=== PATIENT | female | born 1995 | race Caucasian/White ===

== ENCOUNTER 2017-12-17 17:42 | Emergency (ER) | payer OTHER ==
--- NOTE | 2017-12-17 18:55 | RAD ---
HISTORY: Right lower extremity pain COMPARISONS: None relevant TECHNIQUE: Multiple transverse and longitudinal ultrasound images were obtained of the right lower extremity from the level of the common femoral vein inferiorly through to the infrapopliteal veins using grayscale, color Doppler, and spectral Doppler imaging with and without compression and with augmentation. Comparison images were obtained of the contralateral common femoral vein. FINDINGS: VEINS: There is nonocclusive thrombus within the inferior extent of the right femoral vein. There is occlusive thrombus within the gastrocnemius branches of the popliteal vein. The remainder of the venous system of the right lower extremity is compressible throughout its course, with normal flow on color Doppler imaging and normal response to augmentation on spectral Doppler imaging. SOFT TISSUES: Unremarkable. OTHER FINDINGS: None. IMPRESSION: NONOCCLUSIVE THROMBUS OF THE INFERIOR EXTENT OF THE RIGHT FEMORAL VEIN WITH OCCLUSIVE THROMBUS NOTED WITHIN BRANCHES OF THE POPLITEAL VEIN.
[2017-12-17 19:26] LABS: Hematocrit 41 % (35-47); Hemoglobin 13.9 g/dl (12.0-16.0); Mean Corpuscular HGB Conc 34 g/dl (31-36); Mean Corpuscular Hemoglobin 31 pg (27-31); Mean Corpuscular Volume 91 fL (80-97); Mean Platelet Volume 7.5 um3 (7.4-10.4); Platelet Count 253 10^3/ul (150-450); Red Cell Distribution Width 13 % (10.5-15); White Blood Count 6.6 10^3/ul (3.5-10.8)
[2017-12-17 19:46] LABS: EGFR Non-African American 75.2 (>60)
[2017-12-17] MEDS ORDERED: Rivaroxaban TAB(*) 15 MG PO ONE (20:04)
[2017-12-17] MEDS ORDERED: Iohexol 350* (CONTRAST) 500 ML MDV IV ONE (20:45)
[2017-12-17 21:30] VITALS: BP 123/76
--- NOTE | 2017-12-17 21:36 | RAD ---
HISTORY: Chest pain, DVT COMPARISONS: None TECHNIQUE: Multiple contiguous axial CT scans of the chest were obtained without intravenous contrast. Coronal and sagittal multiplanar reformations are also submitted for review. FINDINGS: NECK AND THYROID: The lower neck and thyroid are unremarkable. CHEST WALL: There is no lower cervical, axillary, or supraclavicular lymphadenopathy by size criteria. HEART AND PERICARDIUM: The heart is unremarkable. AORTA AND PULMONARY VASCULATURE: There are filling defects within the segmental branches of the lower lobes bilaterally. The aorta is unremarkable. MEDIASTINUM: There is no mediastinal lymphadenopathy by size criteria. HEVER: There is no hilar lymphadenopathy by size criteria. AIRWAY AND ESOPHAGUS: The airway is unremarkable, without endobronchial filling defect. The esophagus is grossly normal. LUNG PARENCHYMA: The lungs are clear. PLEURA: No pleural abnormalities are noted. UPPER ABDOMEN: The upper abdomen is unremarkable. BONES AND SOFT TISSUES: No bone or soft tissue abnormalities are noted. OTHER: None. IMPRESSION: FILLING DEFECTS WITHIN THE SEGMENTAL LOWER LOBE BRANCHES OF THE PULMONARY ARTERIES BILATERALLY, CONSISTENT WITH PULMONARY EMBOLISM PRELIMINARY FINDINGS WERE DISCUSSED WITH DR. NELSON IN THE EMERGENCY DEPARTMENT AT APPROXIMATELY 9:32 PM ON DECEMBER 17, 2017.
--- NOTE | 2017-12-18 12:35 | ED ---
Progress - Progress Note Progress Note: Received message that patients Xarelto requires a preauthorization. Message left with patient that we do not do Pre-Authorizations for medication. Patient advised to contact primary care provider or [facility] for Pre- Authorizations. She may also return to ed for alternative treatment options.. Course/Dx - Diagnoses Provider Diagnoses: DVT (deep venous thrombosis), Pulmonary embolism Discharge - Sign-Out/Discharge Documenting (check all that apply): Post-Discharge Follow Up - Discharge Plan Condition: Stable Disposition: HOME Prescriptions: Rivaroxaban TAB(*) [Xarelto 15 mg(*)] 15 mg PO BID #42 tab Patient Education Materials: Pulmonary Embolism (DC), Deep Vein Thrombosis (ED) Referrals: [facility] [place] [Primary Care Provider] - 1 Day Additional Instructions: Follow up with [facility] tomorrow. Return to the ER if you experience CP or SOB. RETURN TO THE EMERGENCY DEPARTMENT FOR CHANGING OR WORSENING SYMPTOMS. - Billing Disposition and Condition Condition: STABLE Disposition: HOME
--- NOTE | 2017-12-20 13:26 | ED ---
Shona Lobo Nilda, scribed for West Wilson MD on 12/17/17 at 2137 . Lower Extremity - HPI Summary HPI Summary: This patient is a 22 year old F presenting to [facility] accompanied by friend with a chief complaint of constant pain in right upper calf for the past 3 days. Patient went to [facility] for evaluation in which blood work indicated possible DVT. The patient rates the pain 6/10 in severity. Symptoms aggravated by palpation and alleviated by nothing. Patient reports "weird twinge in left side." Patient denies CP, chest heaviness, palpitations, SOB, dyspnea, cough, and hemoptysis. She denies recent prolonged travel and FHx of DVT and clots. Patient states she's on BCPs. - History of Current Complaint Chief Complaint: EDExtremityLower Stated Complaint: POSSIBLE BLOOD CLOT PER DR Time Seen by Provider: 12/17/17 19:07 Hx Obtained From: Patient Onset of Pain: Days Onset/Duration: Days Severity Currently: Moderate Pain Intensity: 6 Pain Scale Used: 0-10 Numeric Timing: Constant Location: Is Discrete @ - right upper calf Associated Signs And Symptoms: Positive: Other - weird twinge in left side. Patient denies CP, heaviness, on chest, palpations, SOB, dyspnea, cough, and hemoptysis. Aggravating Factor(s): Other - palpation Alleviating Factor(s): Nothing Able to Bear Weight: Yes - Allergies/Home Medications Allergies/Adverse Reactions: Allergies Allergy/AdvReac Type Severity Reaction Status Date / Time Sulfa (Sulfonamide Allergy Hives Verified 12/17/17 17:57 Antibiotics) PMH/Surg Hx/FS Hx/Imm Hx Endocrine/Hematology History: Denies: Hx Diabetes Cardiovascular History: Denies: Hx Hypertension, Hx Pacemaker/ICD Sensory History: Denies: Hx Hearing Aid Psychiatric History: Denies: Hx Panic Disorder Infectious Disease History: No Infectious Disease History: Denies: Traveled Outside the [place] in Last 30 Days - Family History Known Family History: Positive: Hypertension, Diabetes, Other - negative clots - Social History Occupation: Student Alcohol Use: None Substance Use Type: Reports: None Smoking Status (MU): Never Smoked Tobacco Review of Systems Negative: Fever, Chills Negative: Erythema Negative: Sore Throat Positive: Other - negative chest heaviness. Negative: Palpitations, Chest Pain Positive: Other - negative dyspnea and hemoptysis. Negative: Shortness Of Breath, Cough Negative: Abdominal Pain, Vomiting, Nausea Negative: dysuria, hematuria Positive: Other - upper right calf pain, "weird twinge" on left side. Negative : Myalgia, Edema Negative: Rash Neurological: Other - negative dizziness All Other Systems Reviewed And Are Negative: Yes Physical Exam - Summary Physical Exam Summary: Constitutional: Well-developed, Well-nourished, Alert. (-) Distressed Skin: Warm, Dry HENT: Normocephalic; Atraumatic Eyes: Conjunctiva normal Neck: Musculoskeletal ROM normal neck. (-) JVD, (-) Stridor, (-) Tracheal deviation Cardio: Rhythm regular, rate normal, Heart sounds normal; Intact distal pulses; The pedal pulses are 2+ and symmetric. Radial pulses are 2+ and symmetric. (-) Murmur Pulmonary/Chest wall: Effort normal. (-) Respiratory distress, (-) Wheezes, (-) Rales Abd: Soft, (-) Tenderness, (-) Distension, (-) Guarding, (-) Rebound Musculoskeletal: (-) Edema, Posterior right upper calf tenderness. Lymph: (-) Cervical adenopathy Neuro: Alert, Oriented x3 Psych: Mood and affect Normal Triage Information Reviewed: Yes Vital Signs On Initial Exam: Initial Vitals Temp Pulse Resp BP Pulse Ox 96.9 F 87 16 131/79 98 12/17/17 17:53 12/17/17 17:53 12/17/17 17:53 12/17/17 17:53 12/17/17 17:53 Vital Signs Reviewed: Yes Diagnostics - Vital Signs Vital Signs Temp Pulse Resp BP Pulse Ox 12/17/17 17:53 96.9 F 87 16 131/79 98 - Laboratory Lab Results: Lab Results 12/17/17 12/17/17 Range/Units 19:18 19:18 WBC 6.6 (3.5-10.8) 10^3/ul RBC 4.50 (4.0-5.4) 10^6/ul Hgb 13.9 (12.0-16.0) g/dl Hct 41 (35-47) % MCV 91 (80-97) fL MCH 31 (27-31) pg MCHC 34 (31-36) g/dl RDW 13 (10.5-15) % Plt Count 253 (150-450) 10^3/ul MPV 7.5 (7.4-10.4) um3 Sodium 137 (133-145) mmol/L Potassium 3.7 (3.5-5.0) mmol/L Chloride 105 (101-111) mmol/L Carbon Dioxide 25 (22-32) mmol/L Anion Gap 7 (2-11) mmol/L BUN 13 (6-24) mg/dL Creatinine 0.94 (0.51-0.95) mg/dL Est GFR ( Amer) 96.7 (>60) Est GFR (Non-Af Amer) 75.2 (>60) BUN/Creatinine Ratio 13.8 (8-20) Glucose 98 (70-100) mg/dL Calcium 9.5 (8.6-10.3) mg/dL Total Bilirubin 0.30 (0.2-1.0) mg/dL AST 17 (13-39) U/L ALT 13 (7-52) U/L Alkaline Phosphatase 52 (34-104) U/L Total Protein 6.6 (6.4-8.9) g/dL Albumin 4.0 (3.2-5.2) g/dL Globulin 2.6 (2-4) g/dL Albumin/Globulin Ratio 1.5 (1-3) Result Diagrams: 12/17/17 19:18 12/17/17 19:18 Lab Statement: Any lab studies that have been ordered have been reviewed, and results considered in the medical decision making process. - CT CTA chest CT Interpretation Completed By: Radiologist - CTA chest, per radiologist, reveals FILLING DEFECTS WITHIN THE SEGMENTAL LOWER LOBE BRANCHES OF THE PULMONARY ARTERIES BILATERALLY, CONSISTENT WITH PULMONARY EMBOLISM. Dr. Wilson has reviewed this radiology report. - Additional Comments Diagnostic Additional Comments: Venous Doppler, per radiologist, reveals NONOCCLUSIVE THROMBUS OF THE INFERIOR EXTENT OF THE RIGHT FEMORAL VEIN WITH OCCLUSIVE THROMBUS NOTED WITHIN BRANCHES OF THE POPLITEAL VEIN. Dr. Wilson has reviewed this radiology report. Re-Evaluation - Re-Evaluation First Eval Re-Evaluation Time: 20:27 Comment: Reviewed labs and imaging with pt as well as D/C plan. Pt is agreeable to D/C. Lower Extremity Course/Dx - Course Assessment/Plan: This patient is a 22 year old F presenting to [facility] accompanied by friend with a chief complaint of constant pain in right upper calf for the past 3 days. Patient went to [facility] for evaluation in which blood work indicated possible DVT. The patient rates the pain 6/10 in severity. Symptoms aggravated by palpation and alleviated by nothing. Patient reports "weird twinge in left side." Patient denies CP, chest heaviness, palpitations, SOB, dyspnea, cough, and hemoptysis. She denies recent prolonged travel and FHx of DVT and clots. Patient states she's on BCPs. CTA chest, per radiologist, reveals FILLING DEFECTS WITHIN THE SEGMENTAL LOWER LOBE BRANCHES OF THE PULMONARY ARTERIES BILATERALLY, CONSISTENT WITH PULMONARY EMBOLISM. Dr. Wilson has reviewed this radiology report. Venous Doppler, per radiologist, reveals NONOCCLUSIVE THROMBUS OF THE INFERIOR EXTENT OF THE RIGHT FEMORAL VEIN WITH OCCLUSIVE THROMBUS NOTED WITHIN BRANCHES OF THE POPLITEAL VEIN. Dr. Wilson has reviewed this radiology report. Pt was walked and showed Sats at 95%. There are no indications for admission. Pt is in NAD and has good oxygenation. Pt instructed to follow up with [facility] tomorrow and to return to ER for SOB or CP. Pt is stable will be D/C with Dx of PE and DVT. Pt understands and is agreeable with this plan. - Diagnoses Provider Diagnoses: DVT (deep venous thrombosis), Pulmonary embolism Discharge - Sign-Out/Discharge Documenting (check all that apply): Discharge - Discharge Plan Condition: Stable Disposition: HOME Prescriptions: Rivaroxaban TAB(*) [Xarelto 15 mg(*)] 15 mg PO BID #42 tab Patient Education Materials: Pulmonary Embolism (DC), Deep Vein Thrombosis (ED) Referrals: [facility] [place] [Primary Care Provider] - 1 Day Additional Instructions: Follow up with [facility] tomorrow. Return to the ER if you experience CP or SOB. RETURN TO THE EMERGENCY DEPARTMENT FOR CHANGING OR WORSENING SYMPTOMS. The documentation as recorded by the Shona crouch Nilda accurately reflects the service I personally performed and the decisions made by , West Wilson MD.
== END 2017-12-17 22:26 | disposition home or self-care (01) ==
LOC: ED 17:42
DX: I82.411 Acute embolism and thrombosis of right femoral vein (principal); I82.431 Acute embolism and thrombosis of right popliteal vein; I26.99 Other pulmonary embolism without acute cor pulmonale; Z79.3 Long term (current) use of hormonal contraceptives; Z88.2 Allergy status to sulfonamides
CPT/HCPCS: 36415; 71275; 80053; 85027; 99282; Q9967